=== PATIENT | male | born 1965 | race Caucasian/White ===

== ENCOUNTER 2023-03-18 07:54 | Outpatient (AMB) | payer BC, SELFPAY ==
--- NOTE | 2023-03-18 08:07 | MHC.OFFVIS ---
Intake Vital Signs 03/18/23 08:08 Height 5 ft 6 in Weight 185 lb BMI 29.9 BP 110/82 Blood Pressure Location Rt brachial Position Sitting Pulse 67 Pulse Source Pulse Oximeter Intake Visit Reasons: ENP-Memory disorder/Cognit- Conf Intake Note: Patient presents for memory disorder. Allergies No Known Allergies Allergy (Verified 03/18/23 08:09) Medication List - Last Reconciled 03/18/23 by Ayde Nuñez MD bupropion HCl 150 mg PO QAM escitalopram oxalate 20 mg PO DAILY HPI HPI Comments History of Present Illness Details 57y/o right handed male comes for evaluation of memory issues . It started about 3 years ago. It started with missing appointments, misplacing things, difficulty at work - completing things,gets distracted easily, forgetting conversations etc.He has trouble following TV programs. 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 He stopped working 6 mths ago - retiring next month. His main issues are irritability and anger which affected his work.He saw a psychiatrist - who prescribed medications for insomnia and anxiety.He was doing well but past 2 weeks he more irritable.He was suggested therapy but he feels he is not ready for it. He does not have follow up with psychiatry. His sleep is better now. No snoring since he lost weight. He smokes 1 joint a day . [facility] Medical History (Updated 03/18/23 @ 08:51 by Ayde Nuñez MD) Cognitive disorder Depression Anxiety Pulmonary nodules Hyperlipidemia GERD (gastroesophageal reflux disease) Chronic ankle pain Asthma Surgical History (Updated 03/18/23 @ 08:11 by PIETRO Pacheco) History of ankle surgery Family History (Updated 03/18/23 @ 08:11 by PIETRO Pacheco) Mother Breast CA Paternal Grandfather No problems noted. Father No problems noted. Social History (Updated 03/18/23 @ 08:11 by PIETRO Pacheco) Alcohol intake: never Patient Tobacco Use Status: Never used Tobacco Use of substances other than those prescribed or required for medical reasons: Yes Substance Use Type: Marijuana Physical Exam Vital Signs: Last Vital Signs Pulse 67 03/18/23 08:08 BP 110/82 03/18/23 08:08 BMI result Body Mass Index 29.9 Const General: cooperative, healthy appearing, comfortable and no acute distress Nutritional Appearance: average body habitus Orientation/consciousness: patient oriented x3 HEENT Head: Yes normal to inspection Eyes Pupils: Equal, round and reactive pupils present Neuro General: patient oriented x3, gait normal, tone normal, moves all extremities and no focal motor deficits Cranial nerves: Yes Equal, round and reactive pupils present, Yes Bilaterally intact EOM present, Yes Nystagmus not present, Yes Normal facial strength present, Yes Midline tongue present, Yes Symmetric palate elevation present and Yes Ability to bilaterally elevate shoulders present Cognition (Neuro): normal cognition Gait exam (Neuro): Normal gait present Motor exam (neuro): 5/5 motor strength present throughout and Normal motor muscle tone present throughout Deep tendon reflexes (DTR's): Right triceps reflex intensity grade: 1+, Left triceps reflex intensity grade: 1+, Rt Biceps (C5, C6): 1+, Left biceps reflex intensity grade: 1+, Right brachioradialis reflex intensity grade: 1+, Left brachioradialis reflex intensity grade: 1+, Right patellar reflex intensity grade: 1+ and Left patellar reflex intensity grade: 1+ Coordination: [id number] test normal Psych Appearance: grossly normal Orientation What is the (year) (season) (date) (day) (month)?: year, season, date, day and month Where are we (state) (county) (town or city) (hospital) (floor)?: state, county, town or city, hospital/clinic and floor Registration Name of 3 unrelated objects clearly and slowly, then ask patient to repeat all 3 of them. (1st repeat determines score. Make sure they can repeat all three): object 1, object 2 and object 3 Attention & Calculation (CHOOSE ONE) Spell WORLD backwards (DLROW): 5 letters Recall Ask patient to repeat the 3 items from question #3.: object 2 and object 3 Language Show patient a wristwatch & ask what it is. Repeat for pencil.: watch and pencil Ask the patient to repeat the phrase 'No ifs, ands, or buts' after you.: correct Ask the patient to 'take a piece of paper with their right hand' 'fold paper in half' 'place paper on floor': take paper in right hand, fold paper in half and place paper on floor Print the sentence 'CLOSE YOUR EYES' on a piece. If patient actually closes eyes then score.: followed written direction Give patient a blank piece of paper & ask to write a sentence. Score if it contains a noun & verb.: sentence contains subject and verb Ask patient to copy figure of intersecting pentagons exactly. Score if all 10 angles & 2 intersects are included.: all 10 angles present & 2 are intersected Score Score: 29 Assessment & Plan Assessment & Plan (1) Cognitive disorder: Code(s): F09 - Unspecified mental disorder due to known physiological condition (2) Anxiety: Comment: irritability anger issues Code(s): F41.9 - Anxiety disorder, unspecified Plan MRI Brain Psychology - for therapy and psychiatry follow up Psychology today info was given This was a counseling predominated session - counseled on need to manage his anger and mood. He agreed to do therapy Orders: Orders Complete Blood Count Auto Diff Today F09 - Unspecified mental disorder due to known physiological condition Vitamin D 25-OH (D2 and D3) Today F09 - Unspecified mental disorder due to known physiological condition MR head/brain wo con Today F09 - Unspecified mental disorder due to known physiological condition TSH reflex Free T4 Today F09 - Unspecified mental disorder due to known physiological condition Vitamin B12 and Folate Today F09 - Unspecified mental disorder due to known physiological condition Erythrocyte Sedimentation Rate Today F09 - Unspecified mental disorder due to known physiological condition Comprehensive Met. Panel Today F09 - Unspecified mental disorder due to known physiological condition Coding Level of Care Code New Pt Level 4 (35171) Diagnoses Cognitive disorder F09 Anxiety F41.9
[2023-03-18 08:08] VITALS: BP 110/82; PULSE 67; BMI 29.9
== END 2023-03-18 08:57 | disposition home or self-care (01) ==
PROVIDERS: PCP Nurse Practitioner Family; Visit Provider Psychiatry & Neurology Neurology
DX: R41.89 Other symptoms and signs involving cognitive functions and awareness (principal); F41.9 Anxiety disorder, unspecified; R45.4 Irritability and anger
CPT/HCPCS: 99204

== ENCOUNTER → 2023-03-18 07:54 | Outpatient (BNVA) | payer BC, SELFPAY | PROVIDERS: PCP Nurse Practitioner Family; Visit Provider Psychiatry & Neurology Neurology ==